=== PATIENT | male | born 1945 | race Caucasian/White ===

== ENCOUNTER 2016-10-29 08:57 | Observation (INO) | payer MEDICARE, OTHER ==
[~2016-10-29] VITALS: Ht 185.4 cm; Wt 109.8 kg
[2016-10-29] VITALS (12 sets, daily range): BP systolic 109–133; BP diastolic 60–79; PULSE 60–70; RESP 18–20; TEMP 96.9–98.3; O2SAT 94–97
[2016-10-29] MEDS ORDERED: RIVA9.5T T-DERMAL (09:12)
[2016-10-29] MEDS ORDERED: VERA1TAB17 PO (09:12)
[2016-10-29] MEDS ORDERED: ROSU10 PO (09:12)
[2016-10-29] MEDS ORDERED: ZOLO50TA PO (09:12)
[2016-10-29] MEDS ORDERED: RANI150T PO (09:12)
[2016-10-29] MEDS ORDERED: PANT40TA3 PO (09:12)
--- NOTE | 2016-10-29 09:25 | PD ---
HPI Chief Complaint: Chest Pain Time Seen by Provider: 09:13 Travel History International Travel<30 days: No Contact w/Intl Traveler<30days: No Traveled to known affect area: No History of Present Illness HPI This 71-year-old male is complaining of chest pain. He woke up this morning having some substernal chest pain. He is not having the pain right now. The pain was coming and going. He was noted to have a heart rate of 130 at triage although when he came back it was 60. He has a history of tachybradycardia syndrome and has had 2 ablations in the past. He had a pacemaker placed in 2006 he has a history of bilateral knee replacements. He has early Alzheimer's disease. He has had a TURP in the past. He says that last night he was extremely cold and shivering. He has not been coughing. He does urinate frequently on a regular basis, he has a history of a TURP PFS Past Medical History Alzheimer's Disease: Yes (EARLY ONSET) Depression: Yes High Cholesterol: Yes GERD: Yes Hypertension: Yes Past Surgical History Other Surgery: Yes (ABLATION , PACEMAKER, TURP) Social History Alcohol Use: No Tobacco Use: No Substance Use: No Allergies-Medications (Allergen,Severity, Reaction): Coded Allergies: No Known Allergies (Unverified , 10/29/16) Reported Meds & Prescriptions Reported Meds & Active Scripts Active Reported Exelon Patch (Rivastigmine) 9.5 mg/24 hr Patch 1 Patch T-DERMAL DAILY Zoloft (Sertraline HCl) 50 Mg Tab 75 Mg PO DAILY Verapamil ER 24 HR (Verapamil HCl) 240 Mg Tab 240 Mg PO HS Ranitidine (Ranitidine HCl) 150 Mg Tab 150 Mg PO DAILY Pantoprazole (Pantoprazole Sodium) 40 Mg Tab 40 Mg PO DAILY Crestor (Rosuvastatin Calcium) 10 Mg Tab 10 Mg PO DAILY Review of Systems General / Constitutional: Positive: Chills Eyes: No: Diploplia, Blurred Vision HENT: No: Headaches, Vertigo Cardiovascular: Positive: Chest Pain or Discomfort, No: Palpitations Respiratory: No: Cough, Shortness of Breath Gastrointestinal: No: Vomiting, Diarrhea Genitourinary: Positive: Frequency Musculoskeletal: No: Myalgias, Arthralgias Skin: No Rash Neurologic: Positive: Weakness, Dizziness Hematologic/Lymphatic: No: Easy Bruising Physical Exam Narrative GENERAL: [-] Well-developed male SKIN: Warm and dry. HEAD: Atraumatic. Normocephalic. EYES: Pupils equal and round. No scleral icterus. No injection or drainage. ENT: No nasal bleeding or discharge. Mucous membranes pink and moist. NECK: Trachea midline. No JVD. CARDIOVASCULAR: Regular rate and rhythm. No murmur appreciated. RESPIRATORY: No accessory muscle use. Clear to auscultation. Breath sounds equal bilaterally. GASTROINTESTINAL: Abdomen soft, non-tender, nondistended. Hepatic and splenic margins not palpable. MUSCULOSKELETAL: No obvious deformities. No clubbing. No cyanosis. No edema. NEUROLOGICAL: Awake and alert. No obvious cranial nerve deficits. Motor grossly within normal limits. Normal speech. PSYCHIATRIC: Appropriate mood and affect; insight and judgment normal. Data Data Last Documented VS Vital Signs Date Time Temp Pulse Resp B/P Pulse Ox O2 Delivery O2 Flow Rate FiO2 10/29/16 10:11 61 20 113/64 94 10/29/16 09:04 98.3 Orders Electrocardiogram (10/29/16 09:13) Complete Blood Count With Diff (10/29/16 09:13) Comprehensive Metabolic Panel (10/29/16 09:13) Lactic Acid Sepsis Protocol (10/29/16 09:13) Troponin I (10/29/16 09:13) Urinalysis - C+S If Indicated (10/29/16 09:13) Influenzae A/B Antigen (10/29/16 09:13) Blood Culture (10/29/16 09:13) Chest, Single Ap (10/29/16 09:13) Blood Glucose (10/29/16 09:13) Ecg Monitoring (10/29/16 09:13) Iv Access Insert/Monitor (10/29/16 09:13) Oximetry (10/29/16 09:13) Oxygen Administration (10/29/16 09:13) Place In Observation (10/29/16 10:43) Activity Bed Rest With Brp (10/29/16 10:43) Vital Signs (Adult) Q4H (10/29/16 10:43) Cardiac Rhythm .As Directed (10/29/16 10:43) ^ Notify Dr: Other .PRN (10/29/16 10:43) ^ Notify Dr. Parameters (10/29/16 10:43) Resp Oxygen Nasal Cannula (10/29/16 ) Ckmb (Isoenzyme) Profile (10/29/16 12:00) Ckmb (Isoenzyme) Profile (10/29/16 15:00) Troponin I (10/29/16 12:00) Troponin I (10/29/16 15:00) Electrocardiogram (10/29/16 12:00) Electrocardiogram (10/29/16 15:00) ^ Obtain (10/29/16 10:43) Sodium Chloride 0.9% Flush (Ns Flush) (10/29/16 10:45) Sodium Chloride 0.9% Flush (Ns Flush) (10/29/16 21:00) Acetaminophen (Tylenol) (10/29/16 10:45) Acetamin-Hydrocod 325-7.5 Mg (Carman 7.5 (10/29/16 10:45) Morphine Inj (Morphine Inj) (10/29/16 10:45) Ondansetron Inj (Zofran Inj) (10/29/16 10:45) Nitroglycerin Sl (Nitrostat Sl) (10/29/16 10:45) Temazepam (Restoril) (10/29/16 10:45) Nail Expert / Telemetry NEIL.Q8H (10/29/16 10:43) Scd Bilateral/Knee High NEIL.BID (10/29/16 10:43) Suhail Bilateral/Knee High NEIL.QSHIFT (10/29/16 10:43) Pantoprazole (Protonix) (10/30/16 09:00) Rivastigmine 9.5 Mg Patch.24hr (Exelon 9 (10/30/16 09:00) Sertraline (Zoloft) (10/30/16 09:00) Verapamil Sr (Isoptin Sr) (10/29/16 21:00) (Nf) Rosuvastatin (Crestor) (10/30/16 09:00) Diet Npo Except Meds (10/29/16 Lunch) Admit Order (Ed Use Only) (10/29/16 10:49) Labs Laboratory Tests Test 10/29/16 10/29/16 09:05 09:50 White Blood Count 7.8 TH/MM3 Red Blood Count 4.95 MIL/MM3 Hemoglobin 15.8 GM/DL Hematocrit 46.3 % Mean Corpuscular Volume 93.6 FL Mean Corpuscular Hemoglobin 31.9 PG Mean Corpuscular Hemoglobin 34.1 % Concent Red Cell Distribution Width 12.2 % Platelet Count 234 TH/MM3 Mean Platelet Volume 7.4 FL Neutrophils (%) (Auto) 80.9 % Lymphocytes (%) (Auto) 10.3 % Monocytes (%) (Auto) 6.9 % Eosinophils (%) (Auto) 1.7 % Basophils (%) (Auto) 0.2 % Neutrophils # (Auto) 6.4 TH/MM3 Lymphocytes # (Auto) 0.8 TH/MM3 Monocytes # (Auto) 0.5 TH/MM3 Eosinophils # (Auto) 0.1 TH/MM3 Basophils # (Auto) 0.0 TH/MM3 CBC Comment DIFF FINAL Differential Comment Sodium Level 144 MEQ/L Potassium Level 3.8 MEQ/L Chloride Level 110 MEQ/L Carbon Dioxide Level 23.9 MEQ/L Anion Gap 10 MEQ/L Blood Urea Nitrogen 12 MG/DL Creatinine 1.00 MG/DL Estimat Glomerular Filtration 74 ML/MIN Rate Random Glucose 100 MG/DL Lactic Acid Level 1.2 mmol/L Calcium Level 7.8 MG/DL Total Bilirubin 0.8 MG/DL Aspartate Amino Transf 21 U/L (AST/SGOT) Alanine Aminotransferase 23 U/L (ALT/SGPT) Alkaline Phosphatase 89 U/L Troponin I LESS THAN 0.02 NG/ML Total Protein 6.1 GM/DL Albumin 3.1 GM/DL Urine Collection Type CLEAN CATCH Urine Color YELLOW Urine Turbidity CLEAR Urine pH 5.5 Urine Specific [place] 1.018 Urine Protein NEG mg/dL Urine Glucose (UA) NEG mg/dL Urine Ketones NEG mg/dL Urine Occult Blood MOD Urine Nitrite NEG Urine Bilirubin NEG Urine Leukocyte Esterase NEG Urine RBC 10-14 /hpf Urine Squamous Epithelial 0-5 /hpf Cells Microscopic Urinalysis Comment CULT NOT INDICATED Urine Collection Time 09:50 MDM Medical Decision Making Medical Screen Exam Complete: Yes Emergency Medical Condition: Yes Medical Record Reviewed: Yes Differential Diagnosis Differential includes UTI, pneumonia, coronary artery disease, dysrhythmia Narrative Course Patient's EKG shows a possible ectopic atrial rhythm. There is a right bundle branch block. His troponin is normal. He has a history of chills and rigors and I thought he may have evidence of bacterial infection but urine is negative , chest x-ray negative with no evidence of infection. Patient will be admitted to chest pain center for further evaluation Diagnosis Primary Impression: Chest pain Qualified Code: R07.9 - Chest pain, unspecified type Admitting Information Admitting Physician Requests: Raciel Apodaca MD Oct 29, 2016 09:25
[2016-10-29 09:37] LABS: AUTOMATED NEUTROPHIL # 6.4 TH/MM3 (1.8-7.7); BASOPHIL % 0.2 % (0.0-2.0); EOSINOPHIL # 0.1 TH/MM3 (0-0.4); EOSINOPHIL % 1.7 % (0.0-4.0); HEMATOCRIT 46.3 % (39.0-51.0); HEMO FLAGS DIFF FINAL; LYMPH % 10.3 % (9.0-44.0); LYMPHOCYTE # 0.8 TH/MM3 (1.0-4.8); MEAN CELL VOLUME 93.6 FL (80.0-100.0); MEAN CORPUSCULAR HEMOGLOBIN 31.9 PG (27.0-34.0); MEAN CORPUSCULAR HGB CONC 34.1 % (32.0-36.0); MONO % 6.9 % (0.0-8.0); NEUT % 80.9 % (16.0-70.0); PLATELET COUNT 234 TH/MM3 (150-450); RED BLOOD COUNT 4.95 MIL/MM3 (4.50-5.90); RED CELL DISTRIBUTION WIDTH 12.2 % (11.6-17.2); WHITE BLOOD COUNT 7.8 TH/MM3 (4.0-11.0)
[2016-10-29 09:57] LABS: GLUCOSE,URINE NEG (NEG); KETONE, URINE NEG (NEG); NITRITE,URINE NEG (NEG); PH, URINE 5.5 (5.0-8.5)
[2016-10-29 10:01] LABS: CHLORIDE 110 MEQ/L (98-107); POTASSIUM 3.8 MEQ/L (3.5-5.1); SODIUM (NA) 144 MEQ/L (136-145)
[2016-10-29 10:03] LABS: BLOOD, URINE MOD (NEG); METHOD OF COLLECTION CLEAN CATCH; URINE COLOR YELLOW (YELLW/STRAW)
[2016-10-29 10:04] LABS: COMMENT (UR) CULT NOT INDICATED; CULTURE IF INDICATED CULT NOT INDICATED; SQUAMOUS EPITHELIAL CELL URINE 0-5 /hpf (0-5)
--- NOTE | 2016-10-29 10:04 | RADHPO ---
EXAM DATE/TIME: 10/29/2016 09:27 [facility] COMPARISON: No previous studies available for comparison. INDICATIONS : Chest pain. MEDICAL HISTORY : Hypertension. Hypercholesterolemia. Gastroesophageal reflux disease. SURGICAL HISTORY : Pacemaker. Bilateral knee. Cardiac ablation. TURP. ENCOUNTER: Initial ACUITY: 1 day PAIN SCORE: 3/10 LOCATION: middle chest FINDINGS: A single view of the chest demonstrates the lungs to be symmetrically aerated without evidence of mas s, infiltrate or effusion. Heart normal in size. Left-sided pacemaker with 2 intact leads. The cardio mediastinal contours are unremarkable. Osseous structures are intact. CONCLUSION: No acute disease. Gulshan Siu MD on October 29, 2016 at 10:02 Board Certified Radiologist. This report was verified electronically.
[2016-10-29 10:05] LABS: ANION GAP 10 MEQ/L (5-15); BICARBONATE 23.9 MEQ/L (21.0-32.0); BLOOD UREA NITROGEN 12 MG/DL (7-18)
[2016-10-29 10:08] LABS: ALT (GPT) 23 U/L (12-78); AST (GOT) 21 U/L (15-37); GLOMERULAR FILTRATION RATE 74 ML/MIN (>89)
[2016-10-29 10:09] LABS: TOTAL BILIRUBIN ADULT 0.8 MG/DL (0.2-1.0)
[2016-10-29 10:11] LABS: ALKALINE PHOSPHATASE 89 U/L (45-117)
[2016-10-29] MEDS ORDERED: ACETAMINOPHEN 500 MG CPLT PO PRN (10:45)
[2016-10-29] MEDS ORDERED: SODIUM CHLORIDE 0.9% FLUSH 5 ML FLUSH IVF PRN (10:45)
[2016-10-29] MEDS ORDERED: TEMAZEPAM 15 MG CAP PO PRN (10:45)
[2016-10-29] MEDS ORDERED: MORPHINE SULFATE 4 MG/ML INJ IV PRN (10:45)
[2016-10-29] MEDS ORDERED: ACETAMINOPHEN/HYDROcodone 325 MG/7.5 MG TAB PO PRN (10:45)
[2016-10-29] MEDS ORDERED: NITROGLYCERIN 0.4 MG SL 25 TABS/BTL SL PRN (10:45)
[2016-10-29] MEDS ORDERED: ONDANSETRON HCL 4 MG/2 ML VIAL IV PRN (10:45)
[2016-10-29] MEDS ORDERED: PILL SPLITTER OTHER PRN (11:00)
[2016-10-29 12:24] LABS: CREATINE KINASE 128 U/L (39-308)
--- NOTE | 2016-10-29 12:43 | HHI.HP ---
[facility] Service [facility] Primary Care Physician Non-Staff Admission Diagnosis CHEST PAIN Diagnoses: (1) Chest pain Diagnosis: Principal (2) Hyperlipidemia Diagnosis: Secondary (3) Alzheimer's dementia Diagnosis: Secondary Chief Complaint: Rigors, chest pain Travel History International Travel<30 Days: No Contact w/Intl Traveler <30 Da: No Traveled to Known Affected Are: No History of Present Illness 71 year-old male with known history of hypertension, hyperlipidemia, Alzheimer's or dementia, history of tachybradycardia syndrome who presented to hospital because of rigors and chest pain. Patient states that his normal state of health until yesterday. They're having work done in the house and he did a lot of heavy lifting by moving the furniture to the center part of the room. Patient is doing well with to sleep last night. He woke up at 2 AM in the morning feeling chilled. He states that his teeth were chattering and he was shivering. Patient was able to get to that and able to go back to sleep. When he woke up this morning approximate 7 AM he had a discomfort in the middle part of his chest that he described as a dull ache. Patient states that 02/10 on a pain scale. He did have some lightheadedness, whenever he took a deep breath he could feel a twinge in the area of his ache. He denied any nausea, vomiting, diaphoresis. Because the pain remained he came to emergency department for evaluation. By the time he got to emergency department he is no longer experiencing any discomfort. It resolved on its own. Rest or exertion did not makes pain worse or make it any better. Patient had workup done because of the rigors and chest discomfort emergency department. There is no signs of any infection at this time influenza testing was normal, now febrile illness, no tachycardia, no hypotension, no abnormality on chest x-ray, no leukocytosis. Patient ruled out for any infectious source and then it was recommended by the ER physician the patient be observed and chest pain center because of his chest discomfort. Review of Systems Constitutional: COMPLAINS OF: Chills, DENIES: Diaphoretic episodes, Fatigue, Fever, Weight gain, Weight loss, Dizziness, Change in appetite, Night Sweats Eyes: DENIES: Blurred vision, Diplopia, Eye inflammation, Eye pain, Vision loss , Double Vision Ears, nose, mouth, throat: DENIES: Vertigo, Nasal discharge, Throat pain, Ear Pain, Running Nose, Sinus Pain Respiratory: DENIES: Apneas, Cough, Snoring, Wheezing, Hemoptysis, Sputum production, Shortness of breath Cardiovascular: COMPLAINS OF: Chest pain, DENIES: Palpitations, Syncope, Dyspnea on Exertion, Lower Extremity Edema, Orthopnea Gastrointestinal: DENIES: Abdominal pain, Black stools, Bloody stools, Constipation, Diarrhea, Nausea, Vomiting, Difficulty Swallowing, Anorexia Neurologic: DENIES: Abnormal gait, Headache, Localized weakness, Paresthesias, Seizures, Speech Problems, Tremor, Poor Balance Past Family Social History Past Medical History Hypertension Hyperlipidemia Alzheimer's dementia Past Surgical History Cataract surgery Right great toe fusion Right inguinal hernia repair 2 Lateral knee replacement Permanent pacemaker placement Cardiac ablation 2 Transurethral prostate resection Reported Medications Reported Meds & Active Scripts Active Reported Exelon Patch (Rivastigmine) 9.5 mg/24 hr Patch 1 Patch T-DERMAL DAILY Zoloft (Sertraline HCl) 50 Mg Tab 75 Mg PO DAILY Verapamil ER 24 HR (Verapamil HCl) 240 Mg Tab 240 Mg PO HS Ranitidine (Ranitidine HCl) 150 Mg Tab 150 Mg PO DAILY Pantoprazole (Pantoprazole Sodium) 40 Mg Tab 40 Mg PO DAILY Crestor (Rosuvastatin Calcium) 10 Mg Tab 10 Mg PO DAILY Allergies: Coded Allergies: No Known Allergies (Unverified , 10/29/16) Family History Reviewed is significant for high prevalence of dementia. Brother did have heart disease Social History Patient quit smoking 16 years ago, prior to that he smoked half pack a cigarettes a day since he was 14 years old. He had quit approximately to 3 times during that period. He does drink alcohol daily to include at least 2 drinks daily during the week and up to 4 drinks daily on weekends. Denies any illicit drugs Physical Exam Vital Signs Vital Signs Date Time Temp Pulse Resp B/P Pulse Ox O2 Delivery O2 Flow Rate FiO2 10/29/16 12:19 70 20 110/60 97 10/29/16 11:22 60 20 113/71 97 10/29/16 10:11 61 20 113/64 94 10/29/16 09:17 96 10/29/16 09:04 98.3 64 20 122/64 96 Physical Exam GENERAL: Well-developed, well-nourished, in no acute distress. alert and orientated HEENT: Head is normocephalic without any lesions or masses noted. Facial features are symmetric. Eyes: Pupils equal round reactive to light. Extraocular muscles are intact. Conjunctivae were clear. Oropharyngeal: Pharynx without any erythema edema. Tongue is midline without deviation. Buccal mucosa is moist without any masses or lesions NECK: Supple without any masses. Trachea midline no deviation. No JVD, no bruits are appreciated CARDIAC: Regular rhythm, regular rate. S1/S2 are heard. No murmurs gallops or rubs. LUNGS: Clear to auscultation bilaterally. No wheeze, rhonchi or rales. No use of accessory muscles on inspiration or expiration. ABDOMEN: Soft, nontender. Nondistended. Bowel sounds heard in all 4 quadrants. No organomegaly or masses. Negative rebound, negative guarding EXTREMITIES: No edema, pulses are equal bilaterally. No cyanosis or clubbing NEUROLOGY: Mood and affect appear appropriate. Cranial nerves II through XII grossly intact. Muscle strength 5/5 in upper and lower extremities bilaterally. Deep tendon reflexes are 2+ in upper and lower extremities bilaterally. Laboratory Laboratory Tests Test 10/29/16 10/29/16 10/29/16 09:05 09:50 12:00 White Blood Count 7.8 Red Blood Count 4.95 Hemoglobin 15.8 Hematocrit 46.3 Mean Corpuscular Volume 93.6 Mean Corpuscular Hemoglobin 31.9 Mean Corpuscular Hemoglobin 34.1 Concent Red Cell Distribution Width 12.2 Platelet Count 234 Mean Platelet Volume 7.4 Neutrophils (%) (Auto) 80.9 Lymphocytes (%) (Auto) 10.3 Monocytes (%) (Auto) 6.9 Eosinophils (%) (Auto) 1.7 Basophils (%) (Auto) 0.2 Neutrophils # (Auto) 6.4 Lymphocytes # (Auto) 0.8 Monocytes # (Auto) 0.5 Eosinophils # (Auto) 0.1 Basophils # (Auto) 0.0 CBC Comment DIFF FINAL Differential Comment Sodium Level 144 Potassium Level 3.8 Chloride Level 110 Carbon Dioxide Level 23.9 Anion Gap 10 Blood Urea Nitrogen 12 Creatinine 1.00 Estimat Glomerular Filtration 74 Rate Random Glucose 100 Lactic Acid Level 1.2 Calcium Level 7.8 Total Bilirubin 0.8 Aspartate Amino Transf 21 (AST/SGOT) Alanine Aminotransferase 23 (ALT/SGPT) Alkaline Phosphatase 89 Troponin I LESS THAN 0.02 LESS THAN 0.02 Total Protein 6.1 Albumin 3.1 Urine Collection Type CLEAN CATCH Urine Color YELLOW Urine Turbidity CLEAR Urine pH 5.5 Urine Specific [place] 1.018 Urine Protein NEG Urine Glucose (UA) NEG Urine Ketones NEG Urine Occult Blood MOD Urine Nitrite NEG Urine Bilirubin NEG Urine Leukocyte Esterase NEG Urine RBC 10-14 Urine Squamous Epithelial 0-5 Cells Microscopic Urinalysis Comment CULT NOT INDICATED Urine Collection Time 09:50 Total Creatine Kinase 128 Date/Time Procedure Status Source Growth 10/29/16 09:15 Influenza Types A,B Antigen (VAL) - Final Complete Nasal Aspirate NEGATIVE FOR FLU A AND B ANTIGEN.... 10/29/16 09:10 Aerobic Blood Culture Received Blood Peripheral Pending 10/29/16 09:10 Anaerobic Blood Culture Received Blood Peripheral Pending Result Diagram: 10/29/1690410/29/16904 Imaging Last Impressions Chest X-Ray 10/29/16912 Signed Impressions: Service Date/Time: October 09:27 - CONCLUSION: No acute disease. Gulshan Siu MD Assessment and Plan Assessment and Plan Chest pain, atypical Patient with increased risk factors include age, male, hypertension, hyponatremia, history tobacco use, family history of heart disease Patient been ruled out for acute coronary event with serial cardiac enzymes which are negative at this time Serial EKGs show bradycardia with right bundle branch block We'll pursue nuclear stress test rule out any underlying ischemia Continue aspirin and nitroglycerin as needed Chills/rigors, resolved Patient rule out for any underlying infectious process at this time Influenza testing was negative, no leukocytosis, afebrile, urinalysis has some RBCs, however, no signs of infection Blood cultures are pending Hypertension, hyperlipidemia Home medications have been continued Alzheimer's dementia Continue home medications DVT prevention Sequential compression devices Written by Michael Canales PA-C, acting as scribe for Dr. Zelaya on 10/29/16 at 1450. The documentation accurately reflects the work and decisions performed face-to- face by Dr. Zelaya on 10/29/16 at 1450. Discharge disposition Discharge home in stable condition Activity: Ad vito. Diet: Healthy heart diet Medications per medication reconciliation Follow-up primary medical doctor in one week, patient notified to obtain prior medical doctor in the area since he is living in [place] 6 months out of the year Problem Qualifiers (1) Chest pain: Qualified Code: R07.9 - Chest pain, unspecified type (2) Hyperlipidemia: Qualified Code: E78.5 - Hyperlipidemia, unspecified hyperlipidemia type (3) Alzheimer's dementia: Qualified Code: G30.9 - Alzheimer's dementia without behavioral disturbance, unspecified timing of dementia onset Michael Canales Oct 29, 2016 12:43
[2016-10-29 15:50] LABS: CREATINE KINASE 119 U/L (39-308)
[2016-10-29 16:02] LABS: CKMB 1.9 NG/ML (0.5-3.6)
--- NOTE | 2016-10-29 16:28 | HHI.DCPOC ---
Discharge Care Plan Diagnosis: (1) Chest pain Goals to Promote Your Health * To prevent worsening of your condition and complications * To maintain your health at the optimal level Directions to Meet Your Goals Take your medications as prescribed Follow your dietary instruction Follow activity as directed Keep your appointments as scheduled Take your immunizations and boosters as scheduled If your symptoms worsen call your PCP, if no PCP go to Urgent Care Center or Emergency Room Smoking is Dangerous to Your Health. Avoid second hand smoke Call the 24-hour hour crisis hotline for domestic abuse at Michael Canales Oct 29, 2016 16:28
[2016-10-29] MEDS ORDERED: REGADENOSON INJ 0.4 MG/5 ML SYR IV ONE (18:22)
--- NOTE | 2016-10-29 19:39 | RADHPO ---
EXAM DATE/TIME: 10/29/2016 18:23 [facility] COMPARISON: No previous studies available for comparison. INDICATIONS : Midsternal chest pain for 1 day. Angina. DOSE: 25.8 mCi Tc99m Myoview at stress. 8.1 mCi Tc99m Myoview at rest. 0.4 mg Lexiscan STRESS SYMPTOMS: Left upper chest pressure and flushness. EJECTION FRACTION: 55% MEDICAL HISTORY : Hypertension. Hypercholesterolemia. Alzheimers. SURGICAL HISTORY : Pacemaker. Double knee surgery. ENCOUNTER: Initial ACUITY: 1 day PAIN SCALE: 2/10 LOCATION: Retrosternal chest TECHNIQUE: The patient underwent pharmacologic stress with infusion of prescribed dose. Continuous ECG tracing was monitored during stress. Gated SPECT imaging was performed after stress and conventional SPECT i maging was performed at rest. The examination was performed on a SPECT/CT scanner, both attenuation and non-corrected datasets were reviewed. FINDINGS: DISTRIBUTION: The maximum perfused segment at stress is in the inferolateral wall. PERFUSION STUDY: There is a small to moderate area of mild reversible perfusion defect of the anterolateral wall. GATED STUDY: There is intact wall motion and thickening without hypokinetic or dyskinetic segments. CONCLUSION: [id number] focus of mild stress-induced ischemia of the anterolateral wall. Wall motion within normal limits. RISK CATEGORY: Low to medium Seymour Bragg MD on October 29, 2016 at 19:36 Board Certified Radiologist. This report was verified electronically.
[2016-10-29] MEDS ORDERED: ENOXAPARIN SODIUM 100 MG/ML SYRINGE SQ SCH (20:00)
[2016-10-29] MEDS ORDERED: VERAPAMIL HCL 240 MG SUSTAINED RELEASE TAB PO SCH (21:00)
[2016-10-29] MEDS: METOPROLOL TARTRATE 25 MG TAB PO SCH (21:25)
[2016-10-29] MEDS: NITROGLYCERIN 2% OINT 1 GM PACKET TOPICAL SCH ×2 (21:26→22:12)
[2016-10-29] MEDS: SODIUM CHLORIDE 0.9% FLUSH 5 ML FLUSH IVF SCH (21:27)
[2016-10-29] MEDS: ASPIRIN EC 325 MG TABEC PO SCH (21:33)
[2016-10-30] VITALS: BP 93/56; PULSE 61; RESP 16; TEMP 98.4; O2SAT 94
[2016-10-30 04:00] VITALS: BP 96/61; PULSE 60; RESP 16; TEMP 96.6; O2SAT 95
[2016-10-30] MEDS: NITROGLYCERIN 2% OINT 1 GM PACKET TOPICAL SCH (05:34)
[2016-10-30] MEDS ORDERED: diphenhydrAMINE HCL 50 MG/ML VIAL IV SCH (06:45)
[2016-10-30] MEDS ORDERED: SODIUM CHLOR 0.9% 1000 ML INJ 1,000 ML IV SCH ×2 (06:45→11:34)
[2016-10-30] MEDS ORDERED: ASPIRIN 325 MG TAB PO SCH (06:45)
[2016-10-30 08:00] VITALS: BP 115/74; PULSE 60; RESP 16; TEMP 97.8; O2SAT 98
--- NOTE | 2016-10-30 08:11 | HHI.PR ---
Subjective Remarks Patient seen and examined today with Dr. Zelaya. Patient states that he did have a twinge of chest discomfort last night approximately 2 AM. Patient was notified of stress test results and need to pursue further management with cardiology consultation, cardiac catheterization. Patient does agree and understand. Objective Vitals Vital Signs Date Time Temp Pulse Resp B/P Pulse Ox O2 Delivery O2 Flow Rate FiO2 10/30/16 04:00 96.6 60 16 96/61 95 10/30/16 00:00 98.4 61 16 93/56 94 10/29/16 22:32 Nasal Cannula 2.00 10/29/16 21:30 62 10/29/16 20:00 98.3 66 18 121/79 96 10/29/16 16:00 97.9 64 18 133/79 96 10/29/16 14:04 66 10/29/16 14:00 96.9 61 20 112/77 96 10/29/16 14:00 96.9 61 20 112/77 96 10/29/16 13:55 66 10/29/16 13:24 61 20 109/68 97 10/29/16 12:19 70 20 110/60 97 10/29/16 11:22 60 20 113/71 97 10/29/16 10:11 61 20 113/64 94 10/29/16 09:17 96 10/29/16 09:04 98.3 64 20 122/64 96 I/O 10/29/16 10/29/16 10/29/16 10/30/16 10/30/16 10/30/16 07:00 15:00 23:00 07:00 15:00 23:00 Intake Total 0 ml 240 ml Balance 0 ml 240 ml Intake Oral 0 ml 240 ml # Voids 3 2 # Bowel Movements 0 Result Diagram: 10/29/1605 10/29/1605 Imaging Last Impressions Chest X-Ray 10/29/1613 Signed Impressions: Service Date/Time: October 09:27 - CONCLUSION: No acute disease. Gulshan Siu MD Myocardial Perfusion Scan Nuc Med 10/29/16 0000 Signed Impressions: Service Date/Time: October 18:23 - CONCLUSION: [id number] focus of mild stress-induced ischemia of the anterolateral wall. Wall motion within normal limits. RISK CATEGORY: Low to medium Seymour Bragg MD Objective Remarks GENERAL: Well-developed, well-nourished, in no acute distress. alert and orientated HEENT: Head is normocephalic without any lesions or masses noted. Facial features are symmetric. Eyes: Extraocular muscles are intact. Conjunctivae were clear. NECK: Supple without any masses. Trachea midline no deviation. No JVD, CARDIAC: Regular rhythm, regular rate. S1/S2 are heard. No murmurs gallops or rubs. LUNGS: Clear to auscultation bilaterally. No wheeze, rhonchi or rales. No use of accessory muscles on inspiration or expiration. ABDOMEN: Soft, nontender. Nondistended. Bowel sounds heard in all 4 quadrants. No organomegaly or masses. Negative rebound, negative guarding EXTREMITIES: No edema, pulses are equal bilaterally. No cyanosis or clubbing NEUROLOGY: Mood and affect appear appropriate. Cranial nerves II through XII grossly intact. Moving all extremities, speech is clear Urinary Catheter: No Vascular Central Line Catheter: No A/P Assessment and Plan Chest pain, atypical Patient with increased risk factors include age, male, hypertension, hyponatremia, history tobacco use, family history of heart disease Patient been ruled out for acute coronary event with serial cardiac enzymes which are negative at this time Serial EKGs show bradycardia with right bundle branch block Nuclear stress test did indicate small to moderate area of mild stress-induced ischemia and anterior lateral wall. Continue aspirin and statin, started Lopressor, Nitropaste, Lovenox Cardiology consultation has been requested, records indicating plans for cardiac catheterization today Chills/rigors, resolved Patient rule out for any underlying infectious process at this time Influenza testing was negative, no leukocytosis, afebrile, urinalysis has some RBCs, however, no signs of infection Blood cultures are pending Hypertension, hyperlipidemia Home medications have been continued Lipid panel is pending Alzheimer's dementia Continue home medications DVT prevention Sequential compression devices Written by Michael Canales PA-C, acting as scribe for Dr. Zelaya on 10/30/16 at 0825. The documentation accurately reflects the work and decisions performed face-to- face by Dr. Zelaya on 10/30/16 at 0825. Michael Canales Oct 30, 2016 08:11
[2016-10-30 08:18] VITALS: O2SAT 95
[2016-10-30] MEDS: METOPROLOL TARTRATE 25 MG TAB PO SCH (08:20)
[2016-10-30] MEDS: ASPIRIN EC 325 MG TABEC PO SCH (08:23)
[2016-10-30] MEDS: SODIUM CHLORIDE 0.9% FLUSH 5 ML FLUSH IVF SCH (08:24)
[2016-10-30 08:27] LABS: PROTHROMBIN TIME - PATIENT 11.1 SEC (9.8-11.6)
[2016-10-30] MEDS ORDERED: REMOVE OLD PATCH T-DERMAL SCH (09:00)
[2016-10-30] MEDS ORDERED: SERTRALINE HCL 50 MG TAB PO SCH (09:00)
[2016-10-30] MEDS ORDERED: PANTOPRAZOLE SOD 40 MG DELAYED RELEASE TAB PO SCH (09:00)
[2016-10-30] MEDS ORDERED: RIVASTIGMINE 9.5 MG/24 HOUR PATCH T-DERMAL SCH (09:00)
[2016-10-30] MEDS ORDERED: ATORVASTATIN 20 MG TAB PO SCH (09:00)
[2016-10-30 09:32] LABS: HDL CHOLESTEROL 53.7 MG/DL (40.0-60.0)
[2016-10-30] MEDS ORDERED: INFLUENZA VIRUS VACCINE (QUADRIVALENT) 0.5 ML SYR IM ONE (10:00)
[2016-10-30] MEDS ORDERED: PNEUMOCOCCAL POLYVALENT INJ 25 MCG/0.5 ML SYR IM ONE (10:00)
[2016-10-30] MEDS ORDERED: HEPARIN-NS/PF INJ 500 ML ONE (10:59)
--- NOTE | 2016-10-30 11:01 | MB ---
cc: LORNA CHACON MD DATE OF CONSULTATION 10/30/2016 REASON FOR CONSULTATION Chest pain and abnormal nuclear stress test. HISTORY OF PRESENT ILLNESS Mr. Lawson is a 71-year-old man who does have a history of tachybrady syndrome with two AV ablations and a Medtronic pacer insertion who is followed at . He came to the hospital because of rigors and chest pain. He notes that he has been active and exercising at the gym, although he has felt recently that he could not go to his full maximum at the gym. Nonetheless, he does not have any specific complaints during his exercise routine. The other night, he woke up at 2 a.m. with chills and. He had some left chest discomfort that was about a 2/10 and during this time period, he also had some lightheadedness. The chest pain subsided. He subsequently had several twinges of chest pain there and is currently asymptomatic. PAST MEDICAL HISTORY Significant for: 1. Hypertension 2. Hyperlipidemia 3. Alzheimer's 4. Tachybrady syndrome with two ablations and a Medtronic pacemaker insertion 5. Transurethral prostate resection. 6. Cataracts surgery 7. Great toe fusion 8. Inguinal hernia repair 9. Bilateral knee replacements OUTPATIENT MEDICATIONS Included: 1. Exelon patch 2. Zoloft 3. Verapamil 4. Ranitidine 5. Pantoprazole 6. Crestor 7. Aspirin ALLERGIES NO KNOWN DRUG ALLERGIES. FAMILY HISTORY Positive for late CAD. SOCIAL HISTORY The patient is and is a former smoker. He reportedly has two to four drinks a day. REVIEW OF SYSTEMS Except as mentioned in HPI, all 12 systems are negative. PHYSICAL EXAMINATION VITAL SIGNS: Currently are 97.8, 60, 16, 115/74. GENERAL: He is a well-appearing man who is in no apparent distress. NECK: His neck is free from JVD. LUNGS: The lungs are bilaterally clear to auscultation. CARDIOVASCULAR: He has a normal S1 and S2. I did not appreciate any murmurs, rubs or gallops. ABDOMEN: Soft. EXTREMITIES: Free from edema. LABORATORY VALUES Significant for serial troponins of less than 0.2/less than 0.02/ less than 0.2. His creatinine is 1.0. His LDL cholesterol is 67. Nuclear stress test from 10/29/16 shows a small to moderate sized anterolateral defect with mild ischemia. This was read as low to medium cardiovascular risk. EKG shows a atrial paced with right bundle branch block. IMPRESSION 1. Abnormal nuclear stress test and chest pain - the patient is relatively active and has not had a meal difficulties with his exercise and certainly no chest pain on exertion. He presented with some atypical chest pain. He certainly has several cardiovascular risk factors for CAD. His nuclear stress test was showing anterolateral ischemia. He is on Verapamil and Metoprolol here in the hospital. At this point, we discussed the risks and benefits and alternatives to cardiac catheterization in light of his abnormal stress test. The patient does understand that there is a several percent risk for , DE, CVA, bleeding. Despite these risks, he is willing to proceed. 2. History of tachybrady syndrome with permanent pacemaker insertion - The patient appears reasonably stable in this regard. 3. Hyperlipidemia - The patient is on an aggressive regimen and has an excellent lipid profile. I would continue the same. Lorna Chacon M.D. FORD/CLEM /10:12 AM /10:39 AM
[2016-10-30 11:38] LABS: PROTHROMBIN TIME - PATIENT 11.1 SEC (9.8-11.6)
[2016-10-30] MEDS ORDERED: METOCLOPRAMIDE HCL 10 MG/2 ML VIAL IV PRN (11:45)
[2016-10-30] MEDS ORDERED: ATROPINE SULFATE 1 MG/ML VIAL IV PRN (11:45)
[2016-10-30] MEDS ORDERED: SODIUM CHLOR 0.9% 250 ML INJ 250 ML IV PRN (11:45)
[2016-10-30] MEDS ORDERED: MISC INFORMATION XX ONE (11:45)
[2016-10-30] MEDS ORDERED: BACITRACIN OINT 0.9 GM PKT TOP ONE (11:45)
[2016-10-30] MEDS ORDERED: SODIUM CHLORIDE 0.9% FLUSH 5 ML FLUSH IVF PRN (11:45)
[2016-10-30] MEDS ORDERED: ONDANSETRON HCL 4 MG/2 ML VIAL IV PRN (11:45)
[2016-10-30] MEDS ORDERED: LIDOCAINE HCL 1% 50 ML VIAL INFIL PRN (11:45)
[2016-10-30] MEDS ORDERED: LORazepam 2 MG/ML VIAL IV PRN (11:45)
--- NOTE | 2016-10-30 13:49 | EKG ---
Date Performed: 10/30/2016 Time Performed: 07:58:22 PTAGE: 71 years EKG: Atrial pacing. Right bundle branch block Abnormal ECG PREVIOUS TRACING : 10/29/2016 11.53 Since previous tracing, no significant change noted DOCTOR: Roxanne Lawson Interpretating Date/Time 10/30/2016 13:42:42
--- NOTE | 2016-10-30 14:05 | EKG ---
Date Performed: 10/29/2016 Time Performed: 08:59:12 PTAGE: 71 years EKG: Probable paced atrial rhythm with first degree AV block Right bundle branch block Inferior T wave changes are nonspecific Abnormal ECG NO PREVIOUS TRACING FOR COMPARISON DOCTOR: Roxanne Lawson Interpretating Date/Time 10/30/2016 14:04:09
--- NOTE | 2016-10-30 14:05 | EKG ---
Date Performed: 10/29/2016 Time Performed: 11:53:24 PTAGE: 71 years EKG: Probable atrial pacing with 1st degree A-V block although Sinus rhythm cannot be excluded. Since prior tracing there is no serial change. Possible faulty V2 - omitted from analysis Right bundle branch block Clinical correlation is advised Abnormal ECG PREVIOUS TRACING : 10/29/2016 08.59 DOCTOR: Roxanne Lawson Interpretating Date/Time 10/30/2016 14:04:56
--- NOTE | 2016-10-30 15:04 | TR ---
Date Performed: 10/29/2016 Time Performed: 18:36:11 DOCTOR: Kedar López DRUG LIST: CLINICAL HISTORY: CHEST PAIN REASON FOR TEST: REASON FOR ENDING: OBSERVATION: CONCLUSION: Lexiscan stress test was performed under standard four minute protocol. Radionuclid e was injected one minute prior to ending the test. No electrocardiographic abormalities were present to suggest ischemia. Nuclear imaging and interpretation are pending. COMMENTS:
[2016-10-30] MEDS ORDERED: SODIUM CHLORIDE 0.9% FLUSH 5 ML FLUSH IVF SCH (21:00)
--- NOTE | 2016-11-03 10:36 | MA ---
cc: LORNA CHACON MD DATE: 10/30/2016 INDICATION Chest pain and abnormal nuclear stress test. PROCEDURES Left heart catheterization, selective coronary angiography, left ventriculography. DETAILS OF PROCEDURE The patient gave informed consent. He was prepped in the usual sterile fashion. A subcutaneous injection of lidocaine was made in the right inguinal area. Access was achieved into the right femoral artery and a 4-Romanian sheath was inserted. An angiogram was obtained through the sheath. The JL4 and 3-D RC were utilized to engage the left and right coronary arteries. Angiograms were obtained in multiple views and projections. An angles 4-Romanian pigtail catheter was utilized for the left ventriculogram and hemodynamics. The patient remained stable and pain free throughout. FINDINGS LEFT VENTRICULOGRAM This shows a low normal EF of 50%. No focal wall motion abnormalities are appreciated. HEMODYNAMICS Left ventricular pressure 129/11 mmHg Aortic pressure 127/69. CORONARY ANATOMY Left Main: This is a short patent vessel that gives rise to LAD and circumflex. LAD: This is a moderate sized vessel that is free of any significant disease. It does wrap around the apex. There is a small first diagonal and is free of any significant disease. Circumflex: This is a nondominant vessel that is free of any significant disease. There is a high OM1 at about 1.5 mm that is free of any significant disease. The OM2 is 1.5 to 2 mm and also free of any significant disease. RCA: This is a dominant vessel that is free of any significant disease. IMPRESSIONS 1. Normal LV function. 2. Normal coronary arteries. 3. Non-cardiac chest pain. RECOMMENDATION Reasonable for discharge later today. Eboni Ware/MARIJA /11:33 AM /10:35 AM
== END 2016-10-30 14:30 | disposition home or self-care (01) ==
LOC: PHED 08:57 → PHEDA 10:50 → PH3A 14:05
PROVIDERS: ADMIT Family Medicine; ATTEND Family Medicine
DX: R07.9 Chest pain, unspecified (principal); I10 Essential (primary) hypertension; I45.10 Unspecified right bundle-branch block; R94.31 Abnormal electrocardiogram [ECG] [EKG]; E78.5 Hyperlipidemia, unspecified; G30.9 Alzheimer's disease, unspecified; F02.80 Dementia in other diseases classified elsewhere, unspecified severity, without behavioral disturbance, psychotic disturbance, mood disturbance, and anxiety; K21.9 Gastro-esophageal reflux disease without esophagitis; E78.00 Pure hypercholesterolemia, unspecified; Z87.891 Personal history of nicotine dependence; Z95.0 Presence of cardiac pacemaker; Z96.653 Presence of artificial knee joint, bilateral; Z82.49 Family history of ischemic heart disease and other diseases of the circulatory system
CPT/HCPCS: 71010; 78452; 80053; 80061; 81001; 82550; 82552; 83605; 84484; 85025; 85610; 85730; 87040; 87804; 93005; 93017; 93458; 99285; A9502; C1769; C1893; G0378; J1644; J1650; J2785; J3010

== ENCOUNTER 2016-12-21 08:58 | Emergency (ER) | payer MEDICARE, OTHER ==
[~2016-12-21] VITALS: Ht 185.4 cm; Wt 100.0 kg
[~2016-12-21 08:58] MED LIST: PANT40TA3 PO; RANI150T PO; RIVA9.5T T-DERMAL; ROSU10 PO; VERA1TAB17 PO; ZOLO50TA PO
[2016-12-21 09:02] VITALS: BP 143/76; PULSE 67; RESP 15; TEMP 98.1; O2SAT 97
[2016-12-21 12:18] VITALS: BP 140/86; PULSE 63; RESP 22; O2SAT 98
[2016-12-21] MEDS ORDERED: SODIUM CHLOR 0.9% 1000 ML INJ 1,000 ML IV SCH (12:38)
--- NOTE | 2016-12-21 12:44 | PD ---
HPI Chief Complaint: General Weakness Time Seen by Provider: 12:20 Travel History International Travel<30 days: No Contact w/Intl Traveler<30days: No Traveled to known affect area: No History of Present Illness HPI The patient is a 71 year-old male who presents emergency department for difficulty with memory. The patient has a history of early dementia. The patient states earlier today he felt dizzy, had difficulty remembering short term events. The patient denied any unilateral weakness or focal deficits, however, had a generalized sense of weakness of the entire body. The patient denies any history of CVA or TIA. The patient does have a history of early dementia per his report and has a neurologist in his hometown, [place], [place]. The patient denies any acute weakness of the arms or legs, denies any difficulty with speech, dysarthria, or dysphagia. The patient denies any company chest pain, shortness breath, nausea, vomiting, or abdominal pain. The patient states he presented to the emergency department and his symptoms started improve, however, he now feels like his symptoms are returning with a generalized weakness and difficulty remembering short term events. PFSH Past Medical History Hx Anticoagulant Therapy: Yes (ASA) Alzheimer's Disease: Yes (EARLY ONSET) Depression: Yes Cardiovascular Problems: Yes High Cholesterol: Yes GERD: Yes Hypertension: Yes Influenza Vaccination: Yes Past Surgical History Abdominal Surgery: Yes (2 INGUINAL HERNIA SURGERIES) Other Surgery: Yes (ABLATION , PACEMAKER, TURP / RIGHT LARGE TOE SURGERY) Social History Alcohol Use: Yes (DAILY 1-2 DRINKS) Tobacco Use: No Substance Use: No Allergies-Medications (Allergen,Severity, Reaction): Coded Allergies: No Known Allergies (Unverified , 12/21/16) Reported Meds & Prescriptions Reported Meds & Active Scripts Active Reported Exelon Patch (Rivastigmine) 9.5 mg/24 hr Patch 1 Patch T-DERMAL DAILY Zoloft (Sertraline HCl) 50 Mg Tab 100 Mg PO DAILY Verapamil ER 24 HR (Verapamil HCl) 240 Mg Tab 240 Mg PO BID Ranitidine (Ranitidine HCl) 150 Mg Tab 150 Mg PO DAILY Pantoprazole (Pantoprazole Sodium) 40 Mg Tab 40 Mg PO DAILY Crestor (Rosuvastatin Calcium) 10 Mg Tab 10 Mg PO DAILY Review of Systems Except as stated in HPI: all other systems reviewed are Neg General / Constitutional: No: Fever Cardiovascular: No: Chest Pain or Discomfort Respiratory: No: Shortness of Breath Gastrointestinal: No: Nausea, Vomiting, Abdominal Pain Musculoskeletal: Positive: Weakness (generalized weakness) Neurologic: Positive: Dizziness, Change in Mentation, No: Focal Abnormalities , Slurred Speech, Paresthesia, Sensory Disturbance Physical Exam Narrative GENERAL: Awake, alert, pleasant 71-year-old male who appears his stated age and is in no acute respiratory distress. SKIN: Warm and dry. HEAD: Atraumatic. Normocephalic. EYES: Pupils equal and round. Pupils are 4 mm bilateral and reactive. EOMs are intact. Mild injection bilaterally. ENT: No nasal bleeding or discharge. Mucous membranes pink and moist. NECK: Trachea midline. No JVD. CARDIOVASCULAR: Regular rate and rhythm. No murmur appreciated. RESPIRATORY: No accessory muscle use. Clear to auscultation. Breath sounds equal bilaterally. GASTROINTESTINAL: Abdomen soft, non-tender, nondistended. No rebound tenderness. MUSCULOSKELETAL: No obvious deformities. No clubbing. No cyanosis. No edema. NEUROLOGICAL: Awake and alert. No obvious cranial nerve deficits. Motor grossly within normal limits. Normal speech. Nonfocal. Oriented 4. Follows commands without difficulty. No drift of the upper or lower extremities. Finger to nose is normal. Ear [id number] is normal. Smile is symmetric. NIHSS 0. PSYCHIATRIC: Appropriate mood and affect; insight and judgment normal. Data Data Last Documented VS Vital Signs Date Time Temp Pulse Resp B/P Pulse Ox O2 Delivery O2 Flow Rate FiO2 12/21/16 14:07 18 97 Room Air 12/21/16 12:18 63 140/86 12/21/16 09:02 98.1 Orders Electrocardiogram (12/21/16 12:38) Complete Blood Count With Diff (12/21/16 12:38) Comprehensive Metabolic Panel (12/21/16 12:38) Creatine Kinase (Cpk) (12/21/16 12:38) Troponin I (12/21/16 12:38) Thyroid Stimulating Hormone (12/21/16 12:38) Urinalysis - C+S If Indicated (12/21/16 12:38) Ct Brain W/O Iv Contrast(Rout) (12/21/16 12:38) Blood Glucose (12/21/16 12:38) Ecg Monitoring (12/21/16 12:38) Iv Access Insert/Monitor (12/21/16 12:38) Oximetry (12/21/16 12:38) Sodium Chloride 0.9% Flush (Ns Flush) (12/21/16 12:45) Sodium Chlor 0.9% 1000 Ml Inj (Ns 1000 M (12/21/16 12:38) Urine Culture (12/21/16 12:55) Ciprofloxacin 400 Mg Premix (Cipro 400 M (12/21/16 14:00) Labs Laboratory Tests Test 12/21/16 12/21/16 12/21/16 12:40 12:53 12:55 Sodium Level 141 MEQ/L Potassium Level 4.2 MEQ/L Chloride Level 110 MEQ/L Carbon Dioxide Level 24.8 MEQ/L Anion Gap 6 MEQ/L Blood Urea Nitrogen 13 MG/DL Creatinine 0.85 MG/DL Estimat Glomerular Filtration 89 ML/MIN Rate Random Glucose 78 MG/DL Calcium Level 8.4 MG/DL Total Bilirubin 0.5 MG/DL Aspartate Amino Transf 12 U/L (AST/SGOT) Alanine Aminotransferase 26 U/L (ALT/SGPT) Alkaline Phosphatase 76 U/L Total Creatine Kinase 93 U/L Troponin I LESS THAN 0.02 NG/ML Total Protein 6.4 GM/DL Albumin 3.5 GM/DL Thyroid Stimulating Hormone 1.580 uIU/ML 3rd Gen White Blood Count 6.7 TH/MM3 Red Blood Count 5.00 MIL/MM3 Hemoglobin 15.9 GM/DL Hematocrit 47.5 % Mean Corpuscular Volume 95.0 FL Mean Corpuscular Hemoglobin 31.8 PG Mean Corpuscular Hemoglobin 33.4 % Concent Red Cell Distribution Width 13.2 % Platelet Count 203 TH/MM3 Mean Platelet Volume 7.7 FL Neutrophils (%) (Auto) 70.6 % Lymphocytes (%) (Auto) 18.5 % Monocytes (%) (Auto) 7.8 % Eosinophils (%) (Auto) 2.5 % Basophils (%) (Auto) 0.6 % Neutrophils # (Auto) 4.7 TH/MM3 Lymphocytes # (Auto) 1.2 TH/MM3 Monocytes # (Auto) 0.5 TH/MM3 Eosinophils # (Auto) 0.2 TH/MM3 Basophils # (Auto) 0.0 TH/MM3 CBC Comment DIFF FINAL Differential Comment Urine Color YELLOW Urine Turbidity CLEAR Urine pH 7.0 Urine Specific [place] 1.017 Urine Protein NEG mg/dL Urine Glucose (UA) NEG mg/dL Urine Ketones NEG mg/dL Urine Occult Blood NEG Urine Nitrite NEG Urine Bilirubin NEG Urine Urobilinogen LESS THAN 2.0 MG/DL Urine Leukocyte Esterase NEG Urine RBC 2 /hpf Urine WBC 1 /hpf Urine Bacteria RARE /hpf Urine Mucus FEW /lpf Microscopic Urinalysis Comment CATH-CULTURE IND MDM Medical Decision Making Medical Screen Exam Complete: Yes Emergency Medical Condition: Yes Medical Record Reviewed: Yes Interpretation(s) EKG reveals electronic atrial pacemaker. I bundle-branch block with RSR prime in V1. Inverted T waves noted in lead 3. Laboratory Tests Test 12/21/16 12/21/16 12/21/16 12:40 12:53 12:55 Sodium Level 141 MEQ/L Potassium Level 4.2 MEQ/L Chloride Level 110 MEQ/L Carbon Dioxide Level 24.8 MEQ/L Anion Gap 6 MEQ/L Blood Urea Nitrogen 13 MG/DL Creatinine 0.85 MG/DL Estimat Glomerular Filtration 89 ML/MIN Rate Random Glucose 78 MG/DL Calcium Level 8.4 MG/DL Total Bilirubin 0.5 MG/DL Aspartate Amino Transf 12 U/L (AST/SGOT) Alanine Aminotransferase 26 U/L (ALT/SGPT) Alkaline Phosphatase 76 U/L Total Creatine Kinase 93 U/L Troponin I LESS THAN 0.02 NG/ML Total Protein 6.4 GM/DL Albumin 3.5 GM/DL Thyroid Stimulating Hormone 1.580 uIU/ML 3rd Gen White Blood Count 6.7 TH/MM3 Red Blood Count 5.00 MIL/MM3 Hemoglobin 15.9 GM/DL Hematocrit 47.5 % Mean Corpuscular Volume 95.0 FL Mean Corpuscular Hemoglobin 31.8 PG Mean Corpuscular Hemoglobin 33.4 % Concent Red Cell Distribution Width 13.2 % Platelet Count 203 TH/MM3 Mean Platelet Volume 7.7 FL Neutrophils (%) (Auto) 70.6 % Lymphocytes (%) (Auto) 18.5 % Monocytes (%) (Auto) 7.8 % Eosinophils (%) (Auto) 2.5 % Basophils (%) (Auto) 0.6 % Neutrophils # (Auto) 4.7 TH/MM3 Lymphocytes # (Auto) 1.2 TH/MM3 Monocytes # (Auto) 0.5 TH/MM3 Eosinophils # (Auto) 0.2 TH/MM3 Basophils # (Auto) 0.0 TH/MM3 CBC Comment DIFF FINAL Differential Comment Urine Color YELLOW Urine Turbidity CLEAR Urine pH 7.0 Urine Specific [place] 1.017 Urine Protein NEG mg/dL Urine Glucose (UA) NEG mg/dL Urine Ketones NEG mg/dL Urine Occult Blood NEG Urine Nitrite NEG Urine Bilirubin NEG Urine Urobilinogen LESS THAN 2.0 MG/DL Urine Leukocyte Esterase NEG Urine RBC 2 /hpf Urine WBC 1 /hpf Urine Bacteria RARE /hpf Urine Mucus FEW /lpf Microscopic Urinalysis Comment CATH-CULTURE IND CT the head reveals no evidence of acute intracranial pathology. No masses are identified. Differential Diagnosis Differential diagnosis includes transient global amnesia, CVA, TIA, delirium, UTI, hyponatremia, subdural hemorrhage, dementia. Narrative Course IV was established, labs were drawn and sent, and the patient was placed on cardiac telemetry monitoring and continuous pulse oximetry monitoring. EKG was ordered and interpreted. CT the brain was obtained. UA was sent to lab. IV fluids were administered. UA reveals 1 wbc and bacteria, unsure if this is related to contamination or underlying UTI and is causing delirium. Sodium level is within normal limits. CT of the brain is negative. The patient does not appear to have suffered a TIA/CVA, may have mild delirium secondary to UTI versus advancing dementia. Patient is stable for outpatient follow-up with his neurologist. The patient will be provided a copy of his CT results and lab results at discharge. Diagnosis Primary Impression: Delirium Additional Impression: UTI (urinary tract infection) Qualified Code: N39.0 - Urinary tract infection without hematuria, site unspecified Patient Instructions: General Instructions Additional Instructions: Please provide a patient a copy of his CT results, lab results, UA results at discharge. Cipro as directed. Follow-up with your neurologist as scheduled. Return sooner if symptoms worsen or progress. Med/Other Pt SpecificInfo: Prescription(s) given Scripts Ciprofloxacin (Cipro)500 Mg Hiu658 Mg PO BID 7 Days Ref 0 Prov:Vasyl Tanner MD 12/21/16 Disposition: 01 DISCHARGE HOME Condition: Stable Vasyl Tanner MD Dec 21, 2016 12:44
[2016-12-21] MEDS ORDERED: SODIUM CHLORIDE 0.9% FLUSH 10 ML FLUSH IVF PRN (12:45)
[2016-12-21 13:18] LABS: BACTERIA, URINE RARE /hpf; BLOOD, URINE NEG (NEG); GLUCOSE,URINE NEG (NEG); KETONE, URINE NEG (NEG); MUCUS URINE FEW /lpf (OCC); NITRITE,URINE NEG (NEG); URINE COLOR YELLOW (YELLW/STRAW)
[2016-12-21 13:19] LABS: AUTOMATED NEUTROPHIL # 4.7 TH/MM3 (1.8-7.7); BASOPHIL % 0.6 % (0.0-2.0); EOSINOPHIL # 0.2 TH/MM3 (0-0.4); EOSINOPHIL % 2.5 % (0.0-4.0); HEMATOCRIT 47.5 % (39.0-51.0); HEMO FLAGS DIFF FINAL; LYMPH % 18.5 % (9.0-44.0); LYMPHOCYTE # 1.2 TH/MM3 (1.0-4.8); MEAN CORPUSCULAR HEMOGLOBIN 31.8 PG (27.0-34.0); MEAN CORPUSCULAR HGB CONC 33.4 % (32.0-36.0); MONO % 7.8 % (0.0-8.0); NEUT % 70.6 % (16.0-70.0); PLATELET COUNT 203 TH/MM3 (150-450); RED CELL DISTRIBUTION WIDTH 13.2 % (11.6-17.2); WHITE BLOOD COUNT 6.7 TH/MM3 (4.0-11.0)
[2016-12-21 13:20] LABS: COMMENT (UR) CATH-CULTURE IND; CULTURE IF INDICATED CATH CULTURE IND
[2016-12-21 13:28] LABS: ALT (GPT) 26 U/L (12-78); ANION GAP 6 MEQ/L (5-15); AST (GOT) 12 U/L (15-37); BICARBONATE 24.8 MEQ/L (21.0-32.0); BLOOD UREA NITROGEN 13 MG/DL (7-18); CHLORIDE 110 MEQ/L (98-107); GLOMERULAR FILTRATION RATE 89 ML/MIN (>89); POTASSIUM 4.2 MEQ/L (3.5-5.1); SODIUM (NA) 141 MEQ/L (136-145)
[2016-12-21 13:37] LABS: ALKALINE PHOSPHATASE 76 U/L (45-117); TOTAL BILIRUBIN ADULT 0.5 MG/DL (0.2-1.0)
[2016-12-21 13:39] LABS: CREATINE KINASE 93 U/L (39-308)
[2016-12-21] MEDS ORDERED: CIPROFLOXACIN 400 MG PREMIX 200 ML IV ONE (14:00)
[2016-12-21 14:07] VITALS: RESP 18; O2SAT 97
--- NOTE | 2016-12-21 15:24 | RADRPT ---
EXAM DATE/TIME: 12/21/2016 13:15 [facility] COMPARISON: No previous studies available for comparison. INDICATIONS : Dizziness and general weakness today. RADIATION DOSE: 56.35 CTDIvol (mGy) MEDICAL HISTORY : Alzheimer's Dementia. Stroke. SURGICAL HISTORY : Pacemaker. ENCOUNTER: Initial ACUITY: 1 day PAIN SCALE: 0/10 LOCATION: Bilateral head TECHNIQUE: Multiple contiguous axial images were obtained of the head. Using automated exposure control and adj ustment of the mA and/or kV according to patient size, radiation dose was kept as low as reasonably a chievable to obtain optimal diagnostic quality images. FINDINGS: CEREBRUM: Him to POSTERIOR FOSSA: The cerebellum and brainstem are intact. The 4th ventricle is midline. The cerebellopontine angle i s unremarkable. EXTRACRANIAL: The visualized portion of the orbits is intact. SKULL: The calvaria is intact. No evidence of skull fracture. There is benign-appearing mucosal disease in the left maxillary sinus. CONCLUSION: 1. No evidence of acute intracranial pathology. No masses are identified. Kedar Mcwilliams MD on December 21, 2016 at 15:21 Board Certified Radiologist. This report was verified electronically.
[2016-12-21] MEDS ORDERED: CIPR-9 PO (15:32)
--- NOTE | 2016-12-22 22:06 | EKG ---
Date Performed: 12/21/2016 Time Performed: 13:44:38 PTAGE: 71 years EKG: ELECTRONIC ATRIAL PACEMAKER RIGHT BUNDLE BRANCH BLOCK Since previous tracing, no significan t change noted ABNORMAL ECG PREVIOUS TRACING : 10/30/2016 07.58 DOCTOR: Roxanne Lawson Interpretating Date/Time 12/22/2016 22:05:17
== END 2016-12-21 15:44 | disposition home or self-care (01) ==
LOC: NEPE 08:58
DX: N39.0 Urinary tract infection, site not specified (principal); R41.0 Disorientation, unspecified; B96.29 Other Escherichia coli [E. coli] as the cause of diseases classified elsewhere; F03.90 Unspecified dementia, unspecified severity, without behavioral disturbance, psychotic disturbance, mood disturbance, and anxiety; F32.9 Major depressive disorder, single episode, unspecified; I10 Essential (primary) hypertension; R53.1 Weakness; Z79.82 Long term (current) use of aspirin; I44.7 Left bundle-branch block, unspecified
CPT/HCPCS: 70450; 80053; 81001; 82550; 84443; 84484; 85025; 87077; 87086; 87186; 93005; 96361; 96374; 99285; J0744; J7030

== ENCOUNTER → 2017-10-15 | Outpatient (CLI) | payer MEDICARE, OTHER ==
[~2017-10-15] MED LIST changes: +ASPI-183 PO
[2017-10-15 09:12] LABS: AUTOMATED NEUTROPHIL # 5.9 TH/MM3 (1.8-7.7); BASOPHIL % 0.4 % (0.0-2.0); EOSINOPHIL # 0.2 TH/MM3 (0-0.4); EOSINOPHIL % 1.9 % (0.0-4.0); HEMATOCRIT 48.4 % (39.0-51.0); HEMOGLOBIN 16.3 GM/DL (13.0-17.0); LYMPH % 18.1 % (9.0-44.0); LYMPHOCYTE # 1.5 TH/MM3 (1.0-4.8); MEAN CELL VOLUME 96.4 FL (80.0-100.0); MEAN CORPUSCULAR HEMOGLOBIN 32.5 PG (27.0-34.0); MEAN CORPUSCULAR HGB CONC 33.7 % (32.0-36.0); MEAN PLATELET VOLUME 7.4 FL (7.0-11.0); MONO % 6.8 % (0.0-8.0); MONOCYTE # 0.6 TH/MM3 (0-0.9); NEUT % 72.8 % (16.0-70.0); PLATELET COUNT 228 TH/MM3 (150-450); RED BLOOD COUNT 5.02 MIL/MM3 (4.50-5.90); RED CELL DISTRIBUTION WIDTH 13.4 % (11.6-17.2); WHITE BLOOD COUNT 8.1 TH/MM3 (4.0-11.0)
[2017-10-15 09:20] LABS: PROTHROMBIN TIME - PATIENT 10.6 SEC (9.8-11.6)
[2017-10-15 09:36] LABS: WESTERGREN SEDIMENTATION RATE 1 mm/hr (0-20)
[2017-10-15 09:50] LABS: ALBUMIN 3.5 GM/DL (3.4-5.0); AST (GOT) 20 U/L (15-37); BICARBONATE 26.7 MEQ/L (21.0-32.0); BLOOD UREA NITROGEN 13 MG/DL (7-18); CHLORIDE 108 MEQ/L (98-107); CREATININE 1.09 MG/DL (0.60-1.30); GLOMERULAR FILTRATION RATE 67 ML/MIN (>89); GLUCOSE,FASTING 89 MG/DL (74-99); SODIUM (NA) 141 MEQ/L (136-145)
[2017-10-15 09:52] LABS: ALT (GPT) 24 U/L (12-78)
[2017-10-15 09:54] LABS: ALKALINE PHOSPHATASE 87 U/L (45-117); TOTAL BILIRUBIN ADULT 0.5 MG/DL (0.2-1.0); TOTAL PROTEIN 6.4 GM/DL (6.4-8.2)
[2017-10-15 10:22] LABS: BACTERIA, URINE RARE /hpf; BILIRUBIN, URINE NEG (NEG); BLOOD, URINE TRACE (NEG); GLUCOSE,URINE NEG (NEG); KETONE, URINE NEG (NEG); MUCUS URINE FEW /lpf (OCC); NITRITE,URINE NEG (NEG); PH, URINE 5.5 (5.0-8.5); URINE COLOR DARK-YELLOW (YELLW/STRAW); URINE LEUKOCYTE ESTERASE LARGE (NEG)
--- NOTE | 2017-10-15 12:16 | RADRPT ---
EXAM DATE/TIME: 10/15/2017 11:27 [facility] COMPARISON: CHEST SINGLE AP, October 29, 2016, 9:27. INDICATIONS : Evaluate for pneumonia, pneumothorax and communicable diseases. Pre-op hip surgery. MEDICAL HISTORY : Alzheimer's dementia. stroke SURGICAL HISTORY : Pacemaker. ENCOUNTER: Initial ACUITY: 1 day PAIN SCORE: 0/10 LOCATION: chest FINDINGS: PA and lateral views of the chest demonstrate a normal-sized cardiac silhouette. There is no effusion , consolidation, or pneumothorax. The bones and soft tissues demonstrate no acute abnormality. Left c hest wall cardiac pacing device is present. There are mild degenerative changes of the thoracic spine . CONCLUSION: No acute cardiopulmonary abnormality is identified. Seymour Quintero MD on October 15, 2017 at 12:07 Board Certified Radiologist. This report was verified electronically.
== END ==
LOC: CPRE 08:36
PROVIDERS: ATTEND Orthopaedic Surgery Sports Medicine
DX: Z01.812 Encounter for preprocedural laboratory examination (principal); Z01.811 Encounter for preprocedural respiratory examination; M16.12 Unilateral primary osteoarthritis, left hip; Z96.60 Presence of unspecified orthopedic joint implant; M25.50 Pain in unspecified joint; Z79.01 Long term (current) use of anticoagulants; R82.99 Other abnormal findings in urine
CPT/HCPCS: 36415; 71046; 80053; 81001; 85025; 85610; 85652; 85730; 87086

== ENCOUNTER 2017-11-01 05:18 | Inpatient (IN) | payer MEDICARE, OTHER ==
[~2017-11-01] VITALS: Ht 185.4 cm; Wt 108.0 kg
[2017-11-01] MEDS ORDERED: TRANEXAMIC PERI-ARTICULAR 3,000 MG/NS 100 ML P-ARTICULR SCH ×2 (05:45)
[2017-11-01] MEDS ORDERED: CHLORHEXIDINE GLUCONATE 4% SOLN 120 ML BTL TOPICAL SCH (05:45)
[2017-11-01] MEDS ORDERED: DEXAMETHASONE SOD PHOS 20 MG/5 ML VIAL IV PRN (05:45)
[2017-11-01] MEDS ORDERED: TRANEXAMIC ACID INJ 1,600 MG in SODIUM CHLORIDE 0.9% INJ 100 ML IV SCH (05:45)
[2017-11-01] MEDS ORDERED: LACTATED RINGER'S 1000 ML IV PRN (05:45)
[2017-11-01] MEDS ORDERED: VANCOMYCIN 1000 MG/NS 250 ML (for <70 kg) IV SCH ×2 (05:45)
[2017-11-01] MEDS ORDERED: ceFAZolin 2 GM PREMIX 50 ML IV SCH (05:45)
[2017-11-01] MEDS ORDERED: CHLORHEXIDINE GLUCONATE 2 % 1 PACK (2 CLOTHS) TOPICAL PRN (05:45)
[2017-11-01] MEDS ORDERED: METOPROLOL TARTRATE 25 MG TAB PO PRN (05:45)
[2017-11-01] MEDS ORDERED: POVIDONE IODINE 7.5% SCRUB 118 ML BOTTLE TOPICAL SCH (05:45)
[2017-11-01] MEDS ORDERED: POVIDONE IODINE 5% (ANTISEPSIS KIT) 4 APPLICATIONS EACH NARE PRN (05:45)
[2017-11-01] MEDS ORDERED: SODIUM CHLORID 0.9% 500 ML IV PRN (05:45)
[2017-11-01] MEDS ORDERED: EXPAREL PERI-ARTICULAR INJECTION (TOTAL VOL. 60 ML) P-ARTICULR SCH ×2 (05:45)
[2017-11-01] MEDS ORDERED: VANCOMYCIN 1 GM/200 ML INJ 200 ML IV ONE (05:49)
[2017-11-01] MEDS ORDERED: GENTAMICIN SULFATE 80 MG/2 ML VIAL ONE (05:59)
[2017-11-01] MEDS ORDERED: HYDR-3288 PO (06:41)
[2017-11-01] MEDS ORDERED: ASPI81CH6 CHEW (06:42)
[2017-11-01] MEDS ORDERED: PROPOFOL 500 MG/50 ML INJ 100 ML ONE (06:42)
[2017-11-01] MEDS ORDERED: ACETAMINOPHEN/HYDROcodone 325 MG/7.5 MG TAB PO PRN (06:45)
[2017-11-01] MEDS ORDERED: diphenhydrAMINE HCL 50 MG/ML VIAL IV PUSH PRN (06:45)
[2017-11-01] MEDS ORDERED: Post-op Orders (for Pharmacy) XX ONE (06:45)
[2017-11-01] MEDS ORDERED: ONDANSETRON HCL 4 MG/2 ML VIAL IVP PRN (06:45)
[2017-11-01] MEDS ORDERED: BISACODYL 10 MG SUPP RECTAL PRN (06:45)
[2017-11-01] MEDS ORDERED: MORPHINE SULFATE 4 MG/ML INJ IV PUSH PRN (06:45)
[2017-11-01] MEDS ORDERED: ZOLPIDEM TARTRATE 5 MG TAB PO PRN (06:45)
[2017-11-01] MEDS ORDERED: DO NOT ADM ANY ANTICOAGULANT DRUGS PRN (08:55)
[2017-11-01] MEDS: RIVASTIGMINE 9.5 MG/24 HOUR PATCH T-DERMAL SCH (09:00)
[2017-11-01] MEDS: PANTOPRAZOLE SOD 40 MG DELAYED RELEASE TAB PO SCH (09:00)
[2017-11-01] MEDS: SERTRALINE HCL 50 MG TAB PO SCH (09:00)
[2017-11-01] MEDS ORDERED: NON-FORMULARY DRUG (Ranitidine 150 MG) PO SCH (09:00)
[2017-11-01] MEDS: VERAPAMIL HCL 240 MG SUSTAINED RELEASE TAB PO SCH ×2 (09:00→21:00)
[2017-11-01] MEDS: ATORVASTATIN 20 MG TAB PO SCH (09:00)
[2017-11-01] MEDS: SODIUM CHLOR 0.9% 1000 ML INJ 1,000 ML IV SCH ×2 (09:05→16:39)
--- NOTE | 2017-11-01 09:19 | MP ---
cc: ELTON CHISHOLM DATE OF SURGERY: 11/01/2017 PREOPERATIVE DIAGNOSIS Left hip osteoarthritis. POSTOPERATIVE DIAGNOSES Left hip osteoarthritis. PROCEDURE Left total hip arthroplasty. SURGEON Dr. Elton Chisholm. LADIES ATTENDANT MARGARITO Becerra ANESTHESIA Spinal. ESTIMATED BLOOD LOSS 200 ccs. COMPLICATIONS None. IMPLANTS USED DePuy Corail size 12 Press-Fit standard offset femoral stem, size 56 solid pinnacle Gription cup, 36 mm ceramic head, +5 neck, 36 mm neutral highly cross-linked polyethylene liner. JUSTIFICATION This patient is a 72-year-old male with history of severe end-stage osteoarthritis involving the left hip. He has severe disabling pain with standing, walking, ambulation, weight-bear activities, severe pain at rest and it does interfere with activities of daily living. He has failed greater than 3 months of nonoperative conservative treatment to include medication therapy, injections, ambulatory assisted aids, home exercise program, activity modification. The patient is not overweight. X-ray of the left hip reveals severe osteoarthritis with joint space narrowing, subchondral sclerosis, subchondral cyst osteophyte formation and subluxation. The patient is counseled as to the risks, benefits and alternatives to a total hip arthroplasty. The risks were discussed which include but not limited to anesthesia, bleeding, infection, damage to nerves, blood vessels, continued pain, fracture dislocation, leg length discrepancies, blood clots, pulmonary embolism and even . The patient's pain is severe, he favored the benefits over the risks. He did wish to proceed with surgery. PROCEDURE IN DETAIL A written consent was obtained. The patient was identified by name, taken to the operating room and placed supine on the operating table. He did have spinal anesthesia administered as well as 2 grams of IV Ancef and 1 gram of IV vancomycin. The left and right feet were placed in padded traction boots. The left hip and left lower extremity was prepped and draped using isopropyl alcohol, Hibiclens solution and Chloraprep solution. After a time-out was performed a longitudinal incision was made over the anterolateral aspect of the left hip. The fascial layer was incised. Dissection was carried over tensor fascia jose beneath the rectus femoris to allow exposure of the anterior capsule. A capsulotomy incision was performed. An oscillating saw was used to perform a femoral neck cut. The osteophytic femoral head and neck component was removed. A 10 blade scalpel was used to excise the labrum. Sequential reaming began at size 51 and was carried through to size 56. Subsequently a solid pinnacle Gription cup was implanted in approximately 45 degrees of abduction, 10 degrees of anteversion. There is good purchase and fixation after insertion of the cup. A screw hole eliminator was placed followed by the neutral liner. The liner was impacted in place and tested for stability. Attention was turned to the femur where the leg was externally rotated, extended and adducted. A box cutting osteotome was used to gain entrance into the intramedullary canal of the femur, followed by a canal finder and sequential broaching up to size 12. Calcar planer was used to plane the calcar. Trial head and neck combinations were evaluated and final components implanted. With the current components the leg could achieve external rotation of 70 degrees extension all the way down to the ground without evidence of anterior instability or impingement. Fluoroscopic imaging showed appropriate implantation of components. The surgical wound was thoroughly irrigated with sterile saline pulse lavage antibiotic impregnated solution. The fascia layer was closed with #1 Vicryl suture, subcutaneous layer with 2-0 Vicryl suture, skin was closed with Dermabond. A sterile dressing was applied. The patient tolerated the procedure well with no intraoperative complications noted. Heber Moses, Physician Seconds Handler Certified was present during the entire procedure to include patient positioning, the procedure itself. The medical necessity of physician assistant branch manager was indicated in this case due to the complexity of the procedure. He assisted with appropriate manipulation of the leg and also retraction of muscle, tendon, bone, neurovascular structures. He assisted with the preparation of bone and also implantation of the prosthetic replacement. MD NASIMA Luu/TYRELL /8:34 AM /8:52 AM
--- NOTE | 2017-11-01 09:59 | RADRPT ---
EXAM DATE/TIME: 11/01/2017 07:20 [facility] COMPARISON: No previous studies available for comparison. INDICATIONS : Left total hip replacement. MEDICAL HISTORY : Alzheimer's dementia. stroke SURGICAL HISTORY : Pacemaker. ENCOUNTER: Initial ACUITY: 1 day PAIN SCORE: Non-responsive. LOCATION: Left Hip FINDINGS: The patient is status post a total hip arthroplasty with a bipolar prosthesis. Prosthesis is well-sea karl. Alignment is anatomic. A fracture is not appreciated. CONCLUSION: Anatomic alignment. Haile Solis MD FACR Board Certified Radiologist. This report was verified electronically.
--- NOTE | 2017-11-01 10:30 | RADRPT ---
EXAM DATE/TIME: 11/01/2017 09:50 [facility] COMPARISON: No previous studies available for comparison. INDICATIONS : Post op left hip surgery MEDICAL HISTORY : None. SURGICAL HISTORY : None. ENCOUNTER: Initial ACUITY: 1 day PAIN SCORE: 0/10 LOCATION: Left hip and pelvis FINDINGS: The patient is status post a total hip arthroplasty with a bipolar prosthesis. Prosthesis is well-sea karl. Alignment is anatomic. A fracture is not appreciated. CONCLUSION: Anatomic alignment. Haile Solis MD FACR Haile Solis MD FACR on November 01, 2017 at 10:27 Board Certified Radiologist. This report was verified electronically.
[2017-11-01 11:13] VITALS: BP 105/70; PULSE 67; RESP 18; TEMP 95.3; O2SAT 93
[2017-11-01] MEDS ORDERED: PHENYLEPH/NS 1000 MCG/10 ML SYR IV ONE (12:00)
[2017-11-01] MEDS ORDERED: PROPOFOL 200 MG/20 ML AMP IV ONE (12:00)
[2017-11-01] MEDS ORDERED: LIDOCAINE HCL 1% PF 5 ML SYRINGE OTHER ONE (12:00)
[2017-11-01] MEDS ORDERED: LACTATED RINGER'S 1000 ML INJ 1,000 ML IV ONE (12:00)
[2017-11-01] MEDS: ACETAMINOPHEN/HYDROcodone 325 MG/7.5 MG TAB PO PRN ×3 (12:03→21:55)
--- NOTE | 2017-11-01 12:53 | PD.CONS ---
HPI Service [facility] Consult Requested By Orthopedic surgery Reason for Consult Medical management Primary Care Physician MARGARITO Nowak Diagnoses: History of Present Illness 72-year-old man with past medical history of hypertension, severe left hip osteoarthritis with despite medical management continued to have severe pain affecting daily living activities including ambulation,. Patient states he's tried conservative treatments including medication, corticosteroid injection and physical therapy over the past 3 months without any significant improvement. Patient was taken to the operating room today and underwent Left total hip arthroplasty. Patient was seen postoperatively in his room, denies any chest pain or shortness of breath. Vitals stable. Review of Systems Except as stated in HPI: all other systems reviewed are Neg Past Family Social History Allergies: Coded Allergies: No Known Allergies (Unverified Allergy, Unknown, 11/01/17) Past Medical History Hypertension Hyperlipidemia Alzheimer's dementia Past Surgical History Cataract surgery Right great toe fusion Right inguinal hernia repair 2 Lateral knee replacement Permanent pacemaker placement Cardiac ablation 2 Transurethral prostate resection Reported Medications see EMR Family History Reviewed is significant for high prevalence of dementia. Brother did have heart disease Social History Patient quit smoking 16 years ago, prior to that he smoked half pack a cigarettes a day since he was 14 years old. He had quit approximately to 3 times during that period.He reports social alcohol intake. Denies any illicit drugs Physical Exam Vital Signs Vital Signs Date Time Temp Pulse Resp B/P (MAP) Pulse Ox O2 Delivery O2 Flow Rate FiO2 11/01/17 11:13 95.3 67 18 105/70 (82) 93 11/01/17 10:45 97.6 64 17 100/64 (76) 98 Room Air 11/01/17 10:30 64 15 104/60 (75) 98 Room Air 11/01/17 10:15 64 13 94/61 (72) 98 Room Air 11/01/17 10:00 64 22 99/64 (76) 93 Room Air 11/01/17 09:45 64 24 90/56 (67) 99 Room Air 11/01/17 09:30 64 12 97/60 (72) 99 Room Air 11/01/17 09:15 64 12 96/62 (73) 99 Room Air 11/01/17 09:00 64 15 80/54 (63) 99 Room Air 11/01/17 08:56 64 14 97/54 (68) 100 11/01/17 08:52 65 12 80/55 (63) 100 11/01/17 08:50 98.0 65 13 87/53 (64) 98 Nasal Cannula 2 11/01/17 05:59 99.1 71 16 101/75 (84) 94 Physical Exam GENERAL: This is a well-nourished, well-developed patient, in no apparent distress. SKIN: No rashes, ecchymoses or lesions. Cool and dry. HEAD: Atraumatic. Normocephalic. No temporal or scalp tenderness. EYES: Pupils equal round and reactive. Extraocular motions intact. No scleral icterus. No injection or drainage. ENT: Nose without bleeding, purulent drainage or septal hematoma. Throat without erythema, tonsillar hypertrophy or exudate. Uvula midline. Airway patent. NECK: Trachea midline. No JVD or lymphadenopathy. Supple, nontender, no meningeal signs. CARDIOVASCULAR: Regular rate and rhythm without murmurs, gallops, or rubs. RESPIRATORY: Clear to auscultation. Breath sounds equal bilaterally. No wheezes , rales, or rhonchi. GASTROINTESTINAL: Abdomen soft, non-tender, nondistended. No hepato-splenomegaly , or palpable masses. No guarding. MUSCULOSKELETAL: Left hip repair, neurovascular intact NEUROLOGICAL: Awake and alert. Cranial nerves II through XII intact. Motor and sensory grossly within normal limits. Five out of 5 muscle strength in all muscle groups. Normal speech. Assessment and Plan Assessment and Plan 72-year-old man with Status post left total hip arthroplasty 11/01/17 Management per orthopedic surgery Continue current postoperative care Pain management accordingly DVT prophylaxis with Lovenox Monitor for postop anemia PT consult to treat any other Hypertension Continue verapamil 240 mg twice a day Vasotec when necessary Anxiety Continue Zoloft DVT prophylaxis: Lovenox Thank you for this consultation Code Status Full code Discussed Condition With Patient, Gulshan Raymundo MD Nov 01, 2017 12:53
[2017-11-01 15:31] VITALS: BP 124/71; PULSE 63; RESP 19; TEMP 98.1; O2SAT 95
[2017-11-01 21:10] VITALS: BP 111/65; PULSE 65; RESP 18; TEMP 96.2; O2SAT 94
[2017-11-01 23:05] VITALS: BP 112/58; PULSE 65; RESP 18; TEMP 96.8; O2SAT 94
[2017-11-02] MEDS: SODIUM CHLOR 0.9% 1000 ML INJ 1,000 ML IV SCH (02:39)
[2017-11-02 04:40] VITALS: BP_SYST 107; BP_SYST 151; BP_DIAS 78; BP_DIAS 85; PULSE 65; PULSE 66; RESP 17; RESP 19; TEMP 96.3; TEMP 96.6; O2SAT 95; O2SAT 99
[2017-11-02 07:52] LABS: HEMATOCRIT 42.4 % (39.0-51.0); HEMOGLOBIN 14.4 GM/DL (13.0-17.0); MEAN CELL VOLUME 96.4 FL (80.0-100.0); MEAN CORPUSCULAR HEMOGLOBIN 32.7 PG (27.0-34.0); MEAN CORPUSCULAR HGB CONC 33.9 % (32.0-36.0); PLATELET COUNT 206 TH/MM3 (150-450); RED CELL DISTRIBUTION WIDTH 13.4 % (11.6-17.2); WHITE BLOOD COUNT 14.9 TH/MM3 (4.0-11.0)
[2017-11-02 08:00] VITALS: BP 122/80; PULSE 70; RESP 18; TEMP 96.9; O2SAT 96
[2017-11-02] MEDS ORDERED: ENOXAPARIN SODIUM 40 MG/0.4 ML SYRINGE SQ SCH (08:00)
--- NOTE | 2017-11-02 08:32 | PD.ORT.PN ---
Subjective Post Op Day #: 1 Subjective Remarks pain under control Objective Vitals Vital Signs Date Time Temp Pulse Resp B/P (MAP) Pulse Ox O2 Delivery O2 Flow Rate FiO2 11/02/17 04:40 96.3 65 17 107/78 (88) 95 11/01/17 23:05 96.8 65 18 112/58 (76) 94 11/01/17 21:10 96.2 65 18 111/65 (80) 94 11/01/17 15:31 98.1 63 19 124/71 (88) 95 11/01/17 11:13 95.3 67 18 105/70 (82) 93 11/01/17 10:45 97.6 64 17 100/64 (76) 98 Room Air 11/01/17 10:30 64 15 104/60 (75) 98 Room Air 11/01/17 10:15 64 13 94/61 (72) 98 Room Air 11/01/17 10:00 64 22 99/64 (76) 93 Room Air 11/01/17 09:45 64 24 90/56 (67) 99 Room Air 11/01/17 09:30 64 12 97/60 (72) 99 Room Air 11/01/17 09:15 64 12 96/62 (73) 99 Room Air 11/01/17 09:00 64 15 80/54 (63) 99 Room Air 11/01/17 08:56 64 14 97/54 (68) 100 11/01/17 08:52 65 12 80/55 (63) 100 11/01/17 08:50 98.0 65 13 87/53 (64) 98 Nasal Cannula 2 I/O 11/01/17 11/01/17 11/01/17 11/02/17 11/02/17 11/02/17 07:00 15:00 23:00 07:00 15:00 23:00 Intake Total 2043 ml 720 ml 1412 ml Output Total 875 ml 650 ml 550 ml Balance 1168 ml 70 ml 862 ml Intake Oral 75 ml 720 ml 480 ml IV Total 1968 ml 932 ml Output Urine Total 775 ml 650 ml 550 ml Estimated Blood Loss 100 ml # Bowel Movements 0 0 Result Diagram: 11/02/17 0441 Objective Remarks in bed, nad, in room dressing c/d/i thigh swelling, soft neg homans nvi Assessment & Plan Ortho Post Op Day #: 1 Problem List: Assessment and Plan s/p L SERGIO wbat ok to maintain dressing unless saturated lovenox, d/c on [id number] d/c planning home with [facility] and pt - cleared today if does well in pt f/up dr. jim 2 weeks Ivan Moses Nov 02, 2017 08:32
--- NOTE | 2017-11-02 08:33 | HHI.DCPOC ---
Discharge Care Plan Diagnosis: (1) Primary localized osteoarthrosis, pelvic region and thigh Your Health Problems Are: Difficulty with ADL Goals to Promote Your Health * To prevent worsening of your condition and complications * To maintain your health at the optimal level Directions to Meet Your Goals Take your medications as prescribed Follow your dietary instruction Follow activity as directed Keep your appointments as scheduled Take your immunizations and boosters as scheduled If your symptoms worsen call your PCP, if no PCP go to Urgent Care Center or Emergency Room Smoking is Dangerous to Your Health. Avoid second hand smoke Call the 24-hour hour crisis hotline for domestic abuse at Ivan Moses Nov 02, 2017 08:33
--- NOTE | 2017-11-02 08:34 | HHI.FF ---
Face to Face Verification Diagnosis: (1) Primary localized osteoarthrosis, pelvic region and thigh Physical Therapy Gait training, Safety evaluation, Transfer training, bed to chair Hip: Total hip, Protocol: Left Left LE Weight Bearing: WB as tolerated Nursing Nursing: Dressing changes Dressing Changes: Daily dressing change Additional Instructions ok to maintain dressing unless saturated. I have seen patient Matthew Lawson on 11/02/17. My clinical findings support the need for the requested home health care services because: Limited ability to care for self High risk of falls I certify that my clinical findings support that this patient is homebound because: Post-op weakness Unsteady gait/balance Ivan Moses Nov 02, 2017 08:34
[2017-11-02] MEDS: ATORVASTATIN 20 MG TAB PO SCH (08:45)
[2017-11-02] MEDS: ACETAMINOPHEN/HYDROcodone 325 MG/7.5 MG TAB PO PRN ×2 (08:45→12:36)
[2017-11-02] MEDS: VERAPAMIL HCL 240 MG SUSTAINED RELEASE TAB PO SCH (08:45)
[2017-11-02] MEDS: SERTRALINE HCL 50 MG TAB PO SCH (08:46)
[2017-11-02] MEDS: PANTOPRAZOLE SOD 40 MG DELAYED RELEASE TAB PO SCH (08:46)
[2017-11-02] MEDS: RIVASTIGMINE 9.5 MG/24 HOUR PATCH T-DERMAL SCH (08:46)
--- NOTE | 2017-11-02 10:00 | HHI.PR ---
Subjective Remarks Patient seen and examined Complains of left hip soreness otherwise stable. Reports one episode of dizziness while up in the bathroom Objective Vitals Vital Signs Date Time Temp Pulse Resp B/P (MAP) Pulse Ox O2 Delivery O2 Flow Rate FiO2 11/02/17 08:00 96.9 70 18 122/80 (94) 96 11/02/17 04:40 96.3 65 17 107/78 (88) 95 11/01/17 23:05 96.8 65 18 112/58 (76) 94 11/01/17 21:10 96.2 65 18 111/65 (80) 94 11/01/17 15:31 98.1 63 19 124/71 (88) 95 11/01/17 11:13 95.3 67 18 105/70 (82) 93 11/01/17 10:45 97.6 64 17 100/64 (76) 98 Room Air 11/01/17 10:30 64 15 104/60 (75) 98 Room Air 11/01/17 10:15 64 13 94/61 (72) 98 Room Air 11/01/17 10:00 64 22 99/64 (76) 93 Room Air I/O 11/01/17 11/01/17 11/01/17 11/02/17 11/02/17 11/02/17 07:00 15:00 23:00 07:00 15:00 23:00 Intake Total 2043 ml 720 ml 1412 ml Output Total 875 ml 650 ml 550 ml Balance 1168 ml 70 ml 862 ml Intake Oral 75 ml 720 ml 480 ml IV Total 1968 ml 932 ml Output Urine Total 775 ml 650 ml 550 ml Estimated Blood Loss 100 ml # Bowel Movements 0 0 Result Diagram: 11/02/17 0441 Imaging Last Impressions Hip and Pelvis X-Ray 11/01/17 0639 Signed Impressions: Service Date/Time: Wednesday, November 01, 2017 09:50 - CONCLUSION: Anatomic alignment. Haile Solis MD Hip X-Ray 11/01/17 0000 Signed Impressions: Service Date/Time: Wednesday, November 01, 2017 07:20 - CONCLUSION: Anatomic alignment. Haile Solis MD Objective Remarks GENERAL: NAD SKIN: Warm and dry. HEAD: Normocephalic. EYES: No scleral icterus. No injection or drainage. NECK: Supple, trachea midline. No JVD or lymphadenopathy. CARDIOVASCULAR: Regular rate and rhythm without murmurs, gallops, or rubs. RESPIRATORY: Breath sounds equal bilaterally. No accessory muscle use. GASTROINTESTINAL: Abdomen soft, non-tender, nondistended. MUSCULOSKELETAL: No cyanosis, or edema. left hip repair-neurovascular intact BACK: Nontender without obvious deformity. No CVA tenderness. A/P Assessment and Plan 72-year-old man with Status post left total hip arthroplasty 11/01/17 Management per orthopedic surgery Continue current postoperative care Pain management accordingly DVT prophylaxis with Lovenox Monitor for postop anemia PT to treat Hypertension Continue verapamil 240 mg twice a day Vasotec when necessary Anxiety Continue Zoloft DVT prophylaxis: Lovenox Discharge Planning Medically clear for discharge Gulshan Raymundo MD Nov 02, 2017 10:00
[2017-11-02 13:08] VITALS: O2SAT 93
[2017-11-02] MEDS ORDERED: MULTIVITAMINS/MINERALS THERAPEUTIC TAB PO SCH (21:00)
[2017-11-02] MEDS ORDERED: DOCUSATE SODIUM 100 MG CAP PO SCH (21:00)
== END 2017-11-02 14:16 | disposition home health service (06) | DRG 470 ==
LOC: HSDI 05:18 → N06B 11:06
PROVIDERS: ADMIT Orthopaedic Surgery Sports Medicine; ATTEND Orthopaedic Surgery Sports Medicine
PROC: 0SRB04A Replacement of Left Hip Joint with Ceramic on Polyethylene Synthetic Substitute, Uncemented, Open Approach (ICD-10-PCS; principal; 2017-11-01 06:41)
DX: M16.12 Unilateral primary osteoarthritis, left hip (principal); G30.9 Alzheimer's disease, unspecified; I10 Essential (primary) hypertension; F02.80 Dementia in other diseases classified elsewhere, unspecified severity, without behavioral disturbance, psychotic disturbance, mood disturbance, and anxiety; Z96.659 Presence of unspecified artificial knee joint; F41.9 Anxiety disorder, unspecified; E78.5 Hyperlipidemia, unspecified; Z95.0 Presence of cardiac pacemaker; Z87.891 Personal history of nicotine dependence
CPT/HCPCS: 73501; 73502; 76000; 85027; 86850; 86900; 86901; 94150; C1776; C9290; J0690; J1100; J1580; J1650; J2370; J3370; J7030; J7050; J7120